=== PATIENT | male | born 1940 | race Hispanic/Latino ===

== ENCOUNTER → 2017-07-26 | Outpatient (CLI) | payer MEDICARE ==
[~2017-07-26] MED LIST: APIX5TAB PO; DILT360C30 PO; FOLI1TAB15 PO; LACT1CAP62 PO; RANI150C4 PO; ROSU20TA38 PO; TAMS0.4C32 PO; UBID100C10 PO
== END | disposition home or self-care (01) ==
LOC: RAH 08:59
PROVIDERS: ATTEND Internal Medicine Gastroenterology
DX: R10.11 Right upper quadrant pain (principal); Z90.49 Acquired absence of other specified parts of digestive tract
CPT/HCPCS: 76700

== ENCOUNTER → 2017-08-02 | Outpatient (CLI) | payer MEDICARE | END | disposition home or self-care (01) | LOC: RAH 10:00 | PROVIDERS: ATTEND Internal Medicine | DX: I73.9 Peripheral vascular disease, unspecified (principal); M79.661 Pain in right lower leg; M79.662 Pain in left lower leg | CPT/HCPCS: 93925 ==

== ENCOUNTER → 2017-09-16 | Outpatient (CLI) | payer OTHER ==
[~2017-09-16] MED LIST changes: -APIX5TAB PO; -RANI150C4 PO
== END | disposition home or self-care (01) ==
LOC: SHCH 16:07
PROVIDERS: ATTEND Internal Medicine Cardiovascular Disease
DX: I51.7 Cardiomegaly (principal); I48.91 Unspecified atrial fibrillation; I10 Essential (primary) hypertension
CPT/HCPCS: 93306

== ENCOUNTER → 2017-10-21 | Outpatient (CLI) | payer OTHER ==
[~2017-10-21] VITALS: Ht 175.3 cm; Wt 96.2 kg
[~2017-10-21] MED LIST changes: +REGADENOSON 0.4 MG/5 ML PF SYG IVP SCH; +ROSU20TA30 PO; -ROSU20TA38 PO
== END | disposition home or self-care (01) ==
LOC: SHCH 08:22
PROVIDERS: ATTEND Internal Medicine Cardiovascular Disease
DX: I25.10 Atherosclerotic heart disease of native coronary artery without angina pectoris (principal)
CPT/HCPCS: 78452; 93017; 96374; A9500 ×2; J2785

== ENCOUNTER 2017-10-28 10:22 | Emergency (ER) | payer OTHER ==
[~2017-10-28 10:22] MED LIST changes: -REGADENOSON 0.4 MG/5 ML PF SYG IVP SCH
[2017-10-28 10:56] LABS: BASOPHILS % (AUTO) 0.5 % (0.0-5.0); EOSINOPHILS % (AUTO) 0.7 % (0.0-8.0); HEMATOCRIT 43.8 % (42-54); LYMPHOCYTES % (AUTO) 22.4 % (21.0-51.0); MEAN CORPUSCULAR HEMOGLOBIN 31.4 pg (27.0-33.0); MEAN CORPUSCULAR HGB CONC 34.7 g/dL (32.0-36.0); MEAN CORPUSCULAR VOLUME 90.4 fL (79-99); MONOCYTES % (AUTO) 8.8 % (3.0-13.0); NEUTROPHILS % (AUTO) 67.6 % (40.0-77.0); PLATELET COUNT (AUTO) 262 K/uL (130-400); RED BLOOD CELL COUNT(AUTO) 4.84 MIL/uL (4.50-6.20); RED CELL DISTRIBUTION WIDTH 14.5 % (11.0-15.5); WHITE BLOOD COUNT (AUTO) 9.5 K/uL (4.8-10.8)
[2017-10-28 11:17] LABS: CREATININE 1.2 mg/dL (0.5-1.5); POTASSIUM 3.8 mmol/L (3.5-5.1)
[2017-10-28 11:21] LABS: ALBUMIN 3.3 g/dL (3.5-5.0); BILIRUBIN,TOTAL 0.3 mg/dL (0.2-1.0); MAGNESIUM 1.5 mg/dL (1.80-2.40); PHOSPHORUS 3.7 mg/dL (2.5-4.9); TOTAL PROTEIN, SERUM 8.1 g/dL (6.0-8.3)
[2017-10-28 12:27] LABS: CREATINE KINASE MB 0.6 ng/mL (0.5-3.6); CREATINE KINASE, TOTAL 34 U/L (21-232); MYOGLOBIN 25 ng/mL (10-92); TROPONIN I < 0.04 ng/mL (0.00-0.06)
[2017-10-28] MEDS ORDERED: MAGNESIUM OXIDE 400 MG TABLET PO ONE (14:13)
== END 2017-10-28 15:46 | disposition home or self-care (01) ==
LOC: EDH 10:22
DX: I48.91 Unspecified atrial fibrillation (principal); I10 Essential (primary) hypertension; E78.5 Hyperlipidemia, unspecified; Z88.8 Allergy status to other drugs, medicaments and biological substances; Z90.49 Acquired absence of other specified parts of digestive tract; Z98.890 Other specified postprocedural states
CPT/HCPCS: 36415; 80053; 82550; 82553; 83735; 83874; 84100; 84484; 85025; 93005

== ENCOUNTER → 2017-11-25 | Outpatient (CLI) | payer MEDICARE | END | disposition home or self-care (01) | LOC: OIH 11-14 11:10 | PROVIDERS: ATTEND Internal Medicine | DX: M47.897 Other spondylosis, lumbosacral region (principal) | CPT/HCPCS: 72100 ==

== ENCOUNTER 2017-12-07 08:18 | Emergency (ER) | payer MEDICARE, OTHER ==
[2017-12-07] MEDS ORDERED: ASPIRIN 325 MG TABLET ONE (08:39)
[2017-12-07 08:45] LABS: BASOPHILS % (AUTO) 1.1 % (0.0-5.0); EOSINOPHILS % (AUTO) 2.4 % (0.0-8.0); HEMATOCRIT 39.9 % (42-54); LYMPHOCYTES % (AUTO) 28.9 % (21.0-51.0); MEAN CORPUSCULAR HEMOGLOBIN 30.5 pg (27.0-33.0); MEAN CORPUSCULAR HGB CONC 34.4 g/dL (32.0-36.0); MEAN CORPUSCULAR VOLUME 88.8 fL (79-99); MONOCYTES % (AUTO) 10.2 % (3.0-13.0); NEUTROPHILS % (AUTO) 57.4 % (40.0-77.0); PLATELET COUNT (AUTO) 245 K/uL (130-400); RED BLOOD CELL COUNT(AUTO) 4.49 MIL/uL (4.50-6.20); RED CELL DISTRIBUTION WIDTH 14.2 % (11.0-15.5); WHITE BLOOD COUNT (AUTO) 6.9 K/uL (4.8-10.8)
[2017-12-07 08:52] LABS: POTASSIUM 3.8 mmol/L (3.5-5.1)
[2017-12-07 08:58] LABS: INR 1.02 (0.85-1.15); PARTIAL THROMBOPLASTIN TIME 29.9 SEC (26.3-35.5); PROTHROMBIN TIME 10.7 SEC (9.6-11.6)
[2017-12-07 09:07] LABS: ALBUMIN 3.4 g/dL (3.5-5.0); BILIRUBIN,TOTAL 0.8 mg/dL (0.2-1.0); CREATINE KINASE MB 0.7 ng/mL (0.5-3.6); TOTAL PROTEIN, SERUM 7.9 g/dL (6.0-8.3)
== END 2017-12-07 12:12 | disposition home or self-care (01) ==
LOC: EDH 08:18
DX: I48.91 Unspecified atrial fibrillation (principal); I48.92 Unspecified atrial flutter; F41.9 Anxiety disorder, unspecified
CPT/HCPCS: 36415; 71045; 80053; 82550; 82553; 83874; 84484; 85025; 85610; 85730; 93005; 94761

== ENCOUNTER 2018-08-04 11:03 | Emergency (ER) | payer OTHER ==
[2018-08-04] MEDS ORDERED: ONDANSETRON HCL 4 MG/2 ML VIAL ONE (11:30)
[2018-08-04] MEDS ORDERED: KETOROLAC TROMETHAMINE 30MG/ML ONE (11:30)
[2018-08-04] MEDS ORDERED: SODIUM CHLORIDE 0.9% 500ML 500 ML IV ONE (11:31)
[2018-08-04 11:50] LABS: BASOPHILS % (AUTO) 0.4 % (0.0-5.0); EOSINOPHILS % (AUTO) 1.6 % (0.0-8.0); HEMATOCRIT 46.5 % (42-54); MEAN CORPUSCULAR HEMOGLOBIN 30.4 pg (27.0-33.0); MEAN CORPUSCULAR HGB CONC 32.9 g/dL (32.0-36.0); MEAN CORPUSCULAR VOLUME 92.4 fL (79-99); MONOCYTES % (AUTO) 9.9 % (3.0-13.0); NEUTROPHILS % (AUTO) 57.1 % (40.0-77.0); PLATELET COUNT (AUTO) 279 K/uL (130-400); RED BLOOD CELL COUNT(AUTO) 5.03 MIL/uL (4.50-6.20); RED CELL DISTRIBUTION WIDTH 14.7 % (11.0-15.5); WHITE BLOOD COUNT (AUTO) 8.7 K/uL (4.8-10.8)
[2018-08-04 11:58] LABS: BILIRUBIN,URINE Negative (NEGATIVE); COLOR,URINE Yellow (YELLOW); GLUCOSE, URINE (UA) Negative (NEGATIVE); KETONES,URINE Negative (NEGATIVE); LEUKOCYTE ESTERASE ,URINE Negative (NEGATIVE); NITRATE,URINE Negative (NEGATIVE); OCCULT BLOOD,URINE Negative (NEGATIVE); PROTEIN,URINE Negative (NEGATIVE); UROBILINOGEN,URINE 0.2 mg/dL (0.2-1.0)
[2018-08-04 12:01] LABS: APPEARANCE,URINE CLEAR (CLEAR)
[2018-08-04 12:16] LABS: POTASSIUM 4.1 mmol/L (3.5-5.1)
[2018-08-04 12:26] LABS: ALBUMIN 3.4 g/dL (3.5-5.0); BILIRUBIN,DIRECT 0.1 mg/dL (0.0-0.3); BILIRUBIN,TOTAL 0.7 mg/dL (0.2-1.0); TOTAL PROTEIN, SERUM 8.1 g/dL (6.0-8.3)
== END 2018-08-04 13:53 | disposition home or self-care (01) ==
LOC: EDH 11:03
DX: R10.11 Right upper quadrant pain (principal); R63.0 Anorexia; R11.0 Nausea; I10 Essential (primary) hypertension; E78.5 Hyperlipidemia, unspecified; I48.91 Unspecified atrial fibrillation; Z90.49 Acquired absence of other specified parts of digestive tract; Z88.8 Allergy status to other drugs, medicaments and biological substances; Z91.041 Radiographic dye allergy status
CPT/HCPCS: 36415; 74176; 80048; 80076; 81003; 83690; 84484; 85025; 93005; 96374; 96375; 99284; J1885; J2405; J7040

== ENCOUNTER → 2018-08-29 | Outpatient (CLI) | payer OTHER | END | disposition home or self-care (01) | LOC: RAH 09:22 | PROVIDERS: ATTEND Internal Medicine | DX: K51.80 Other ulcerative colitis without complications (principal); N28.1 Cyst of kidney, acquired | CPT/HCPCS: 76700 ==

== ENCOUNTER 2018-09-25 10:32 | Emergency (ER) | payer OTHER ==
[2018-09-25 10:59] LABS: BASOPHILS % (AUTO) 1.3 % (0.0-5.0); HEMATOCRIT 40.9 % (42-54); MEAN CORPUSCULAR HEMOGLOBIN 31.4 pg (27.0-33.0); MEAN CORPUSCULAR HGB CONC 34.2 g/dL (32.0-36.0); MONOCYTES % (AUTO) 9.4 % (3.0-13.0); NEUTROPHILS % (AUTO) 54.3 % (40.0-77.0); PLATELET COUNT (AUTO) 256 K/uL (130-400); RED BLOOD CELL COUNT(AUTO) 4.45 MIL/uL (4.50-6.20); RED CELL DISTRIBUTION WIDTH 14.5 % (11.0-15.5)
[2018-09-25 11:07] LABS: POTASSIUM 3.5 mmol/L (3.5-5.1)
[2018-09-25 11:14] LABS: ALBUMIN 3.5 g/dL (3.5-5.0); BILIRUBIN,TOTAL 0.9 mg/dL (0.2-1.0)
[2018-09-25 11:36] LABS: PARTIAL THROMBOPLASTIN TIME 28.4 SEC (26.3-35.5); PROTHROMBIN TIME 10.5 SEC (9.6-11.6)
[2018-09-25 12:10] LABS: APPEARANCE,URINE Clear (CLEAR); BILIRUBIN,URINE Negative (NEGATIVE); COLOR,URINE Yellow (YELLOW); GLUCOSE, URINE (UA) Negative (NEGATIVE); KETONES,URINE Negative (NEGATIVE); LEUKOCYTE ESTERASE ,URINE Negative (NEGATIVE); NITRATE,URINE Negative (NEGATIVE); OCCULT BLOOD,URINE Negative (NEGATIVE); PROTEIN,URINE Negative (NEGATIVE)
== END 2018-09-25 12:58 | disposition home or self-care (01) ==
LOC: EDH 10:32
DX: I48.91 Unspecified atrial fibrillation (principal); F41.9 Anxiety disorder, unspecified; E78.5 Hyperlipidemia, unspecified; I10 Essential (primary) hypertension; Z90.49 Acquired absence of other specified parts of digestive tract; Z88.8 Allergy status to other drugs, medicaments and biological substances; Z91.041 Radiographic dye allergy status
CPT/HCPCS: 36415; 71045; 80053; 81003; 84484; 85025; 85610; 85730; 93005

== ENCOUNTER 2018-10-20 05:30 | Day surgery (SDC) | payer OTHER ==
[2018-10-20] VITALS (8 sets, daily range): BP systolic 109–151; BP diastolic 61–91
[~2018-10-20] VITALS: Ht 175.3 cm; Wt 96.2 kg
[2018-10-20] MEDS ORDERED: PROPOFOL 10 MG/ML 20ML VIAL IV ONE ×2 (06:21→07:07)
[2018-10-20] MEDS ORDERED: LIDOCAINE HCL-MPF 2% 5ML VIAL ONE (06:21)
[2018-10-20] MEDS ORDERED: SODIUM CHLORIDE 0.9% 1000ML 1,000 ML IV ONE (06:29)
== END 2018-10-20 07:50 | disposition home or self-care (01) ==
LOC: DAH 05:30 → ENDO 05:30
PROVIDERS: ATTEND Internal Medicine
DX: D12.3 Benign neoplasm of transverse colon (principal); K63.5 Polyp of colon; D12.5 Benign neoplasm of sigmoid colon; K62.1 Rectal polyp; K29.50 Unspecified chronic gastritis without bleeding; K51.80 Other ulcerative colitis without complications; Z86.010 Personal history of colon polyps; K59.01 Slow transit constipation; I10 Essential (primary) hypertension; K44.9 Diaphragmatic hernia without obstruction or gangrene; Z79.899 Other long term (current) drug therapy; Z98.890 Other specified postprocedural states; Z88.8 Allergy status to other drugs, medicaments and biological substances; Z68.31 Body mass index [BMI] 31.0-31.9, adult; E78.5 Hyperlipidemia, unspecified; K21.9 Gastro-esophageal reflux disease without esophagitis; I48.91 Unspecified atrial fibrillation
CPT/HCPCS: 43239; 45380; 45385; 88305; 93005; J2704 ×2; J3490; J7030

== ENCOUNTER → 2018-11-07 | Outpatient (CLI) | payer OTHER ==
[~2018-11-07] MED LIST changes: +IOHEXOL-350 75 ML VIAL IV ONE
== END | disposition home or self-care (01) ==
LOC: RAH 08:01
PROVIDERS: ATTEND Internal Medicine Gastroenterology
DX: K57.30 Diverticulosis of large intestine without perforation or abscess without bleeding (principal); N28.1 Cyst of kidney, acquired; K40.90 Unilateral inguinal hernia, without obstruction or gangrene, not specified as recurrent; M47.816 Spondylosis without myelopathy or radiculopathy, lumbar region; Z90.49 Acquired absence of other specified parts of digestive tract
CPT/HCPCS: 74178; Q9967

== ENCOUNTER 2020-01-22 08:44 | Inpatient (IN) | payer MEDICARE, OTHER ==
[~2020-01-22] VITALS: Ht 175.3 cm; Wt 82.3 kg
[~2020-01-22 08:44] MED LIST changes: -DILT360C30 PO; +DILT360C38 PO; -IOHEXOL-350 75 ML VIAL IV ONE; -ROSU20TA30 PO; +ROSU20TA31 PO
[2020-01-22] MEDS ORDERED: NITROGLYCERIN 0.4 MG SL TAB SL ONE (11:48)
[2020-01-22] MEDS ORDERED: ASPIRIN 325 MG TABLET ONE (11:48)
[2020-01-22 12:56] LABS: BASOPHILS % (AUTO) 0.4 % (0.0-5.0); EOSINOPHILS % (AUTO) 0.7 % (0.0-8.0); HEMATOCRIT 40.1 % (42-54); LYMPHOCYTES % (AUTO) 28.3 % (21.0-51.0); MEAN CORPUSCULAR HEMOGLOBIN 31.4 pg (27.0-33.0); MEAN CORPUSCULAR HGB CONC 32.9 g/dL (32.0-36.0); MEAN CORPUSCULAR VOLUME 95.2 fL (79-99); MONOCYTES % (AUTO) 11.1 % (3.0-13.0); NEUTROPHILS % (AUTO) 58.8 % (40.0-77.0); PLATELET COUNT (AUTO) 239 K/uL (130-400); RED BLOOD CELL COUNT(AUTO) 4.21 MIL/uL (4.50-6.20); RED CELL DISTRIBUTION WIDTH 15.1 % (11.0-15.5); WHITE BLOOD COUNT (AUTO) 7.1 K/uL (4.8-10.8)
[2020-01-22 13:06] LABS: CREATININE 0.9 mg/dL (0.5-1.5); POTASSIUM 3.7 mmol/L (3.5-5.1)
[2020-01-22 13:08] LABS: INR 1.02 (0.85-1.15); PARTIAL THROMBOPLASTIN TIME 30.6 SEC (26.3-35.5)
[2020-01-22 13:11] LABS: ALBUMIN 3.2 g/dL (3.5-5.0); BILIRUBIN,TOTAL 0.8 mg/dL (0.2-1.0); TOTAL PROTEIN, SERUM 6.4 g/dL (6.0-8.3)
[2020-01-22] MEDS ORDERED: SODIUM CHLORIDE 0.9% 1000ML 1,000 ML IV SCH (15:20)
[2020-01-22] MEDS ORDERED: MORPHINE SULFATE 4 MG/1ML SYG IV PRN (15:30)
[2020-01-22] MEDS ORDERED: ACETAMINOPHEN 325 MG TAB PO PRN ×2 (15:30)
[2020-01-22] MEDS ORDERED: ONDANSETRON HCL 4 MG/2 ML VIAL IV PRN (15:30)
[2020-01-22 17:25] LABS: HEMOGLOBIN A1C 5.8 % (4.0-6.0)
[2020-01-22 17:26] LABS: % IRON SATURATION 33.7 % (30-44)
[2020-01-22 17:35] LABS: CHOLESTEROL 159 mg/dL (<200); HDL CHOLESTEROL 44 mg/dL (29-71); LDL DIRECT 103 mg/dL (0-99); TRIGLYCERIDES 87 mg/dL (30-200)
[2020-01-22] MEDS ORDERED: ATORVASTATIN CALCIUM 40 MG TABLET ONE (20:35)
[2020-01-22] MEDS ORDERED: METOPROLOL TARTRATE 25 MG TAB ONE (20:35)
[2020-01-22] MEDS: ATORVASTATIN CALCIUM 40 MG TABLET PO SCH (21:00)
[2020-01-22] MEDS ORDERED: METOPROLOL TARTRATE 25 MG TAB PO SCH (21:00)
[2020-01-22] MEDS ORDERED: FAMOTIDINE/PF 20 MG/2 ML VIAL IV ONE (21:20)
[2020-01-23 04:52] LABS: BASOPHILS % (AUTO) 0.6 % (0.0-5.0); EOSINOPHILS % (AUTO) 1.1 % (0.0-8.0); HEMATOCRIT 40.9 % (42-54); MEAN CORPUSCULAR HEMOGLOBIN 31.6 pg (27.0-33.0); MEAN CORPUSCULAR HGB CONC 33.5 g/dL (32.0-36.0); MEAN CORPUSCULAR VOLUME 94.5 fL (79-99); NEUTROPHILS % (AUTO) 54.7 % (40.0-77.0); PLATELET COUNT (AUTO) 242 K/uL (130-400); RED BLOOD CELL COUNT(AUTO) 4.33 MIL/uL (4.50-6.20); RED CELL DISTRIBUTION WIDTH 14.7 % (11.0-15.5); WHITE BLOOD COUNT (AUTO) 6.2 K/uL (4.8-10.8)
[2020-01-23 05:12] LABS: ALBUMIN 3.1 g/dL (3.5-5.0); BILIRUBIN,TOTAL 0.6 mg/dL (0.2-1.0); POTASSIUM 3.8 mmol/L (3.5-5.1); TOTAL PROTEIN, SERUM 6.4 g/dL (6.0-8.3)
--- NOTE | 2020-01-23 07:30 | NUR ---
ASSUMED CARE OF PATIENT RECEIVED REPORT FROM Kimmy BRUCE RN. PT STABLE, AAO X 3, FOLLOWS COMMANDS, BBS DIMINISHED TO ALL LOBES. O2 @ 2 LNC, O2 SATS 100 %, DENIES ANY CHEST PAIN OR CHEST PRESSURE AT THIS TIME. CALL PATEL PLACED IN REACH. SIDE RAILS UP X 2. BED IN LOWEST POSITION.
[2020-01-23 08:00] VITALS: BP 108/61
[2020-01-23] MEDS: ENOXAPARIN SODIUM 30 MG/0.3 ML SQ SCH (09:00)
[2020-01-23] MEDS: METOPROLOL TARTRATE 25 MG TAB PO SCH ×3 (09:00→20:28)
[2020-01-23] MEDS ORDERED: ASPIRIN 325 MG TABLET PO SCH (09:00)
[2020-01-23] MEDS: FAMOTIDINE/PF 20 MG/2 ML VIAL IV SCH (09:00)
[2020-01-23] MEDS ORDERED: METOPROLOL TARTRATE 25 MG TAB ONE (09:33)
--- NOTE | 2020-01-23 10:28 | NUR ---
CALLED REPORT TO CRISTAL SAGE TRANSFERRED TO DAY PATIENT AREA FOR CONTINUUM OF CARE.
[2020-01-23 11:39] VITALS: BP 144/66
[2020-01-23] MEDS ORDERED: DICY20TA11 PO (12:13)
[2020-01-23] MEDS ORDERED: METO50TA18 PO (12:13)
[2020-01-23] MEDS ORDERED: APIX5TAB PO (12:13)
[2020-01-23] MEDS ORDERED: METO100T14 PO (12:13)
[2020-01-23] MEDS ORDERED: LANS15CA17 PO (12:13)
[2020-01-23] MEDS ORDERED: CILO100T PO (12:13)
[2020-01-23 16:00] VITALS: BP_SYST 122; BP_SYST 127; BP_DIAS 67; BP_DIAS 84
--- NOTE | 2020-01-23 18:08 | NUR ---
INITIAL SW spoke to patient's son, Sina Monteiro Jr . Patient lives with brother. No home services. DME: cane. Patient is able to complete ADL's and drives. PCP is Dr. Maicol Lira. [facility]. DCP is home. Addendum: 01/23/20 at 1809 by OSCAR KIMBALL SS Amended: Links added.
[2020-01-23 19:52] VITALS: BP 130/87
[2020-01-23] MEDS: ATORVASTATIN CALCIUM 40 MG TABLET PO SCH (20:30)
[2020-01-23 23:55] VITALS: BP 140/85
[2020-01-24 03:39] LABS: BASOPHILS % (AUTO) 0.6 % (0.0-5.0); EOSINOPHILS % (AUTO) 1.3 % (0.0-8.0); HEMATOCRIT 38.9 % (42-54); LYMPHOCYTES % (AUTO) 36.1 % (21.0-51.0); MEAN CORPUSCULAR HGB CONC 33.7 g/dL (32.0-36.0); MEAN CORPUSCULAR VOLUME 95.1 fL (79-99); MONOCYTES % (AUTO) 13.4 % (3.0-13.0); PLATELET COUNT (AUTO) 243 K/uL (130-400); RED BLOOD CELL COUNT(AUTO) 4.09 MIL/uL (4.50-6.20); RED CELL DISTRIBUTION WIDTH 14.6 % (11.0-15.5); WHITE BLOOD COUNT (AUTO) 7.2 K/uL (4.8-10.8)
[2020-01-24 03:52] LABS: ALBUMIN 2.8 g/dL (3.5-5.0); BILIRUBIN,TOTAL 0.5 mg/dL (0.2-1.0); POTASSIUM 3.4 mmol/L (3.5-5.1); TOTAL PROTEIN, SERUM 6.5 g/dL (6.0-8.3)
[2020-01-24 03:59] LABS: B-TYPE NATRIURETIC PEPTIDE 206 pg/mL (0-100)
[2020-01-24 04:00] VITALS: BP 133/90
--- NOTE | 2020-01-24 05:02 | NUR ---
PATIENT UPDATE PT slept well overnight, no complaints of chest pain, no shortness of breath. Running afib at a controlled rate in the monitor, in the 90's. Pt refused the Lipitor last night, apparently causing him some GI discomfort. Voiding well, vital signs stable.
[2020-01-24 08:00] VITALS: BP 115/78
[2020-01-24] MEDS: FAMOTIDINE/PF 20 MG/2 ML VIAL IV SCH (09:00)
[2020-01-24] MEDS: ASPIRIN 81 MG EC TAB PO SCH (09:16)
[2020-01-24] MEDS: ENOXAPARIN SODIUM 30 MG/0.3 ML SQ SCH (09:17)
[2020-01-24 11:58] VITALS: BP 94/63
[2020-01-24] MEDS ORDERED: DICYCLOMINE HCL 20 MG TAB PO PRN (12:45)
[2020-01-24] MEDS ORDERED: DILTIAZEM HCL 180 MG CAP.SR.24H PO SCH (14:30)
[2020-01-24] MEDS ORDERED: POTASSIUM CHLORIDE 10MEQ/100ML 100 ML IV PRN (15:00)
[2020-01-24] MEDS ORDERED: LIDOCAINE HCL-MPF 1% 2ML VIAL IV PRN (15:00)
[2020-01-24] MEDS ORDERED: POTASSIUM CHLORIDE 10% ELIXIR 20 MEQ/15 ML UDCUP PO PRN (15:00)
[2020-01-24] MEDS: POTASSIUM CHLORIDE 20 MEQ ERTAB PO PRN ×2 (15:34→17:17)
[2020-01-24 16:30] VITALS: BP 118/78
--- NOTE | 2020-01-24 19:00 | NUR ---
HAVE CALLED HOSPITALIST FOR DISCHARGE ORDER WITH NO RESPONSE. LEFT INSTRUCTIONS WITH GINO ORTIZ OVERNIGHT CASHIER NURSE AND I HAVE ALL THE INSTRUCTIONS AND DISCHARGE INTERVENTIONS DONE EXCEPT FOR THE MEDICATION RECONCILIATION AND TO PRINT DISCHARGE INSTRUCTIONS. Addendum: 01/24/20 at 1902 by REYNALDO MEJIA RN RN Amended: Links added.
[2020-01-24 19:30] VITALS: BP 103/65
--- NOTE | 2020-01-24 19:43 | NUR ---
HOSPITALIST [facility] Hospitalist correction warden,spoke to Delmy Perales re discharge orders.He said to karin Gum Scoring Machine Operator Janna Grider Np.
[2020-01-24] MEDS: ATORVASTATIN CALCIUM 40 MG TABLET PO SCH (20:42)
--- NOTE | 2020-01-24 20:54 | NUR ---
NO CALL BACK Awaiting for discharge orders from AIRCRAFT BODY REPAIRER,no call back received.Pt updated on plan of care.
[2020-01-24] MEDS ORDERED: TAMSULOSIN HCL 0.4 MG CAP.ER.24H PO SCH (21:00)
[2020-01-24] MEDS ORDERED: METOPROLOL TARTRATE 50 MG TAB PO SCH (21:00)
[2020-01-24] MEDS ORDERED: ATORVASTATIN CALCIUM 20 MG TABLET PO SCH (21:00)
--- NOTE | 2020-01-24 21:15 | NUR ---
DORIS MORA DIRECTOR [employer] called back,states pt is not going home tonight. Addendum: 01/24/20 at 7 by PRUDENCIO SULLIVAN RN RN Flor pt was started on new Medication Cardizem during the day,will observe pt for now.Pt updated on plan of care.
--- NOTE | 2020-01-24 21:50 | NUR ---
HEART RATE Heart rate afib 80's.Denies chest pain.
[2020-01-24 23:30] VITALS: BP 102/63
[2020-01-25 03:30] VITALS: BP 106/56
[2020-01-25 05:32] LABS: BASOPHILS % (AUTO) 0.7 % (0.0-5.0); EOSINOPHILS % (AUTO) 1.5 % (0.0-8.0); LYMPHOCYTES % (AUTO) 36.2 % (21.0-51.0); MEAN CORPUSCULAR HEMOGLOBIN 31.7 pg (27.0-33.0); MEAN CORPUSCULAR HGB CONC 33.3 g/dL (32.0-36.0); MEAN CORPUSCULAR VOLUME 95.2 fL (79-99); MONOCYTES % (AUTO) 12.1 % (3.0-13.0); NEUTROPHILS % (AUTO) 48.9 % (40.0-77.0); PLATELET COUNT (AUTO) 229 K/uL (130-400); RED CELL DISTRIBUTION WIDTH 14.6 % (11.0-15.5); WHITE BLOOD COUNT (AUTO) 6.9 K/uL (4.8-10.8)
[2020-01-25 06:07] LABS: ALBUMIN 2.8 g/dL (3.5-5.0); BILIRUBIN,TOTAL 0.7 mg/dL (0.2-1.0); CREATININE 0.9 mg/dL (0.5-1.5); POTASSIUM 3.6 mmol/L (3.5-5.1); TOTAL PROTEIN, SERUM 6.4 g/dL (6.0-8.3)
[2020-01-25] MEDS: POTASSIUM CHLORIDE 20 MEQ ERTAB PO PRN (06:14)
[2020-01-25 07:33] VITALS: BP 95/57
[2020-01-25] MEDS: ASPIRIN 81 MG EC TAB PO SCH (08:03)
[2020-01-25] MEDS: FAMOTIDINE/PF 20 MG/2 ML VIAL IV SCH (08:04)
[2020-01-25] MEDS: ENOXAPARIN SODIUM 30 MG/0.3 ML SQ SCH (08:09)
[2020-01-25] MEDS ORDERED: METOPROLOL TARTRATE 50 MG TAB PO SCH (09:00)
[2020-01-25] MEDS ORDERED: FOLIC ACID 1 MG TABLET PO SCH (09:00)
[2020-01-25] MEDS ORDERED: DILTIAZEM HCL 180 MG CAP.SR.24H PO SCH (09:00)
[2020-01-25] MEDS ORDERED: CILOSTAZOL 100 MG TAB PO SCH (09:00)
[2020-01-25] MEDS ORDERED: APIXABAN 5 MG TABLET PO SCH (09:00)
--- NOTE | 2020-01-25 09:22 | NUR ---
DR NAJERA ROUNDS MADE- PT WILL BE DISCHARGED HOME. PENDING CPOE ORDERS FROM [facility]
--- NOTE | 2020-01-25 10:27 | NUR ---
PT GIVEN PRINTED AND VERBAL DISCHARGE INSTRUCTIONS. VERBALIZES UNDERSTANDING. ESSENTIALLY DISCHARGED JUST WAITING FOR HIS RIDE HOME
--- NOTE | 2020-01-25 10:43 | NUR ---
DISCHARGED HOME . TO CAR VIA WHEELCHAIR. IV CATH REMOVED
== END 2020-01-25 10:43 | disposition home or self-care (01) | DRG 303 ==
LOC: EDH 08:44 → EDHIP 15:55 → DAHIP 01-23 10:45
PROVIDERS: ADMIT Internal Medicine; ATTEND Internal Medicine
DX: I25.110 Atherosclerotic heart disease of native coronary artery with unstable angina pectoris (principal); I48.19 Other persistent atrial fibrillation; I50.42 Chronic combined systolic (congestive) and diastolic (congestive) heart failure; I11.0 Hypertensive heart disease with heart failure; I48.91 Unspecified atrial fibrillation; E78.5 Hyperlipidemia, unspecified; Z90.49 Acquired absence of other specified parts of digestive tract; Z88.8 Allergy status to other drugs, medicaments and biological substances; Z79.01 Long term (current) use of anticoagulants
CPT/HCPCS: 36415; 71045; 80053; 80061; 82550; 82948; 83036; 83540; 83550; 83880; 84484; 85025; 85610; 85730; 93005; 93306; 93356; G0378; J1650; J3490

== ENCOUNTER → 2020-04-28 | Outpatient (CLI) | payer MEDICARE ==
[~2020-04-28] MED LIST changes: +APIX5TAB PO; +CILO100T PO; +DICY20TA11 PO; +LANS15CA17 PO; +METO100T14 PO; +METO50TA18 PO
== END | disposition home or self-care (01) ==
LOC: RAH 10:29
PROVIDERS: ATTEND Internal Medicine
DX: N50.3 Cyst of epididymis (principal)
CPT/HCPCS: 76870